=== PATIENT | male | born 1955 | race Caucasian/White ===

== ENCOUNTER 2021-11-07 05:32 | Day surgery (SDC) | payer OTHER ==
[~2021-11-07] VITALS: Ht 172.7 cm; Wt 52.2 kg
[2021-11-07] MEDS ORDERED: ALBUTEROL SULFATE 2.5 MG/0.5 ML NEB SOLUTION NEB ONE (05:33)
[2021-11-07] MEDS ORDERED: BENZOCAINE 20% 50 MCG/SPRAY 57 GM TP ONE (05:33)
[2021-11-07] MEDS ORDERED: LIDOCAINE 2% 30 ML JELLY TP ONE (05:33)
[2021-11-07] MEDS ORDERED: SODIUM CHLORIDE 0.9% 1,000 ML IV ONE (06:30)
[2021-11-07 06:43] LABS: COVID AG,FIA SOURCE NASOPHARYNGEAL
[2021-11-07] MEDS ORDERED: FentaNYL CITRATE PF 100 MCG/2 ML VIAL ONE (08:00)
[2021-11-07] MEDS ORDERED: MIDAZOLAM HCL 2 MG/2 ML VIAL ONE (08:00)
[2021-11-07] MEDS ORDERED: MethylPREDNISolone SOD SUCC 125 MG/2 ML VIAL ONE (08:36)
[2021-11-07] MEDS ORDERED: MethylPREDNISolone SOD SUCC 125 MG/2 ML VIAL IVP ONE (08:45)
[2021-11-07] MEDS ORDERED: OXYGEN THERAPY IH SCH (20:00)
== END 2021-11-07 10:35 | disposition home or self-care (01) ==
LOC: SURGERY 05:32
PROVIDERS: ATTEND Internal Medicine Critical Care Medicine
DX: J38.4 Edema of larynx (principal); B37.0 Candidal stomatitis; Z79.899 Other long term (current) drug therapy; F17.210 Nicotine dependence, cigarettes, uncomplicated; Z98.890 Other specified postprocedural states; J45.909 Unspecified asthma, uncomplicated; Z86.73 Personal history of transient ischemic attack (TIA), and cerebral infarction without residual deficits
CPT/HCPCS: 31623; 31624; 71045; 71250; 87015; 87070; 87101; 87206; 87220; 87426; 88184; 88185; 93005; C9803; J2250; J2930; J3010; 88112; 88312; J7613